=== PATIENT | female | born 1930 | race Caucasian/White ===

== ENCOUNTER 2018-12-23 14:22 | Emergency (ER) | payer MEDICARE ==
[~2018-12-23] VITALS: Ht 162.6 cm; Wt 68.2 kg
[~2018-12-23 14:22] MED LIST: AMLO-150 PO; ATOR20TA37 PO; BENA40TA3 PO; CALC-141 PO; CHOL2000 PO; DIPH25CA61 PO; FLUT16SP2 NAS; HYDR-3342 PO; LORA10CA PO; OMEP-110 PO; PROP150T2 PO; TRIA1CAP3 PO; WARF-36 PO; WARF7.5T46 PO
--- NOTE | 2018-12-23 14:25 | NUR ---
PT BIB [facility] FROM HOME AFTER SUFFERING AVULSION INJURY TO HER RFA. PT HAD HER DOG'S LEASH WRAPPED AROUND HER RFA, THEN SHE RAN OVER THE LEASH WITH HER SCOOTER, AND IT PULLED THE SKIN ON HER ARM. PT ALSO HAS LARGE HEMATOMA TO R WRIST. 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 PT TOOK TYLENOL AT HOME. HX AFIB & CVA ON COUMADIN, HTN, HLD. PT ARRIVES TO ED A&O4, NO DISTRESS NOTED. NO BLEEDING FROM RFA WOUNDS. ERP AT BS IMMEDIATELY.
[2018-12-23] MEDS ORDERED: DIPH,PERTUSS(ACELL),TET VAC/PF 0.5 ML IM-VACC ONE ×2 (14:47→15:00)
--- NOTE | 2018-12-23 14:56 | NUR ---
RFA WOUNDS AND HEMATOMA CLEANED, COVERED WITH ADAPTIC AND GAUZE PRESSURE DRESSING, AND WRAPPED WITH COBAN BY EMT. PT TOLERATED WELL. Addendum: 12/23/18 at 1457 by ESPINOZA PT'S DAUGHTER ON HER WAY TO ENGRAVER PICTURE PT.
[2018-12-23 14:59] LABS: INTERNATIONAL NORMALIZED RATIO 1.7 (0.93-1.1); PROTHROMBIN TIME 17.5 Seconds (9.6-11.5)
--- NOTE | 2018-12-23 15:53 | NUR ---
NEW DRESSING APPLIED TO RFA IT WAS BLEEDING THROUGH AFTER PT RETURNED FROM XR. GAUZE AND COBAN PRESSURE DSG APPLIED, BLEEDING CONTROLLED. DAUGHTER AT BS.
[2018-12-23 15:54] VITALS: BP 212/82
--- NOTE | 2018-12-23 16:50 | NUR ---
D/C INSTRUCTIONS, WOUND CARE, AND F/U APPT RV'WD WITH PT AND DAUGHTER, THEY VERBALIZE UNDERSTANDING. PT STATES HER GRANDSON (WHO IS AN EMT) WILL COME OVER TO HELP WITH WOUND CARE. SLING PROVIDED TO PT TO KEEP R ARM ELEVATED; CMS INTACT TO RUE. PT AMBULATED OUT OF ED WITH WALKER AND DAUGHTER WITHOUT DIFFICULTY.
== END 2018-12-23 17:05 | disposition other institution (70) ==
LOC: ED 15:35
DX: S51.801A Unspecified open wound of right forearm, initial encounter (principal); S60.211A Contusion of right wrist, initial encounter; Z79.01 Long term (current) use of anticoagulants; X58.XXXA Exposure to other specified factors, initial encounter; Y93.89 Activity, other specified; Y92.009 Unspecified place in unspecified non-institutional (private) residence as the place of occurrence of the external cause; Y99.8 Other external cause status
CPT/HCPCS: 36415; 85610; 90471; 90715; 99284

== ENCOUNTER → 2019-05-25 | Outpatient (CLI) | payer MEDICARE | END | disposition home or self-care (01) | LOC: CVU 13:28 | PROVIDERS: ATTEND Internal Medicine Cardiovascular Disease | DX: I08.1 Rheumatic disorders of both mitral and tricuspid valves (principal); I48.0 Paroxysmal atrial fibrillation; I10 Essential (primary) hypertension; E78.5 Hyperlipidemia, unspecified; I63.9 Cerebral infarction, unspecified; I08.3 Combined rheumatic disorders of mitral, aortic and tricuspid valves | CPT/HCPCS: 93306 ==

== ENCOUNTER → 2019-06-25 | Outpatient (CLI) | payer MEDICARE | END | disposition home or self-care (01) | LOC: CVU 15:24 | PROVIDERS: ATTEND Registered Nurse | DX: I65.23 Occlusion and stenosis of bilateral carotid arteries (principal); I10 Essential (primary) hypertension; E78.5 Hyperlipidemia, unspecified; Z86.73 Personal history of transient ischemic attack (TIA), and cerebral infarction without residual deficits | CPT/HCPCS: 93880 ==

== ENCOUNTER 2020-12-18 13:36 | Inpatient (IN) | payer MEDICARE ==
[~2020-12-18] VITALS: Ht 162.6 cm; Wt 70.4 kg
[2020-12-18] MEDS ORDERED: ASPIRIN 81 MG TABLET CHEW PO ONE (14:00)
[2020-12-18] MEDS ORDERED: PLEASE ENTER HEIGHT AND WEIGHT MC SCH (14:00)
--- NOTE | 2020-12-18 15:18 | NUR ---
PT TO RM FROM LOBBY
[2020-12-18] MEDS ORDERED: ACETAMINOPHEN 325 MG TABLET PO ONE (15:30)
[2020-12-18] MEDS ORDERED: hydrALAzine 20 MG/ML, 1ML IV ONE ×2 (15:30→16:30)
[2020-12-18] MEDS ORDERED: ACETAMINOPHEN 325 MG TABLET ONE ×2 (15:35→21:22)
[2020-12-18] MEDS ORDERED: hydrALAzine 20 MG/ML, 1ML ONE ×2 (15:51→16:40)
--- NOTE | 2020-12-18 16:04 | NUR ---
PT BACK FROM CT. PT AMBULATORY TO BR WITH STEADY GAIT. IV PLACED, MEDS GIVEN PER ERP ORDER FOR HTN 204/107. PT MEDICATED WITH TYLENOL FOR PAIN. CALL LIGHT WITHIN REACH.
--- NOTE | 2020-12-18 16:42 | NUR ---
PER ERP, LAB DELAY DUE TO ERRONEOUS CANCELLATION OF LABS IN COMPUTER. PT REMEDICATED FOR HTN, VSS UPDATED IN COMPUTER. AWAITING LAB RESULTS.
[2020-12-18 16:54] LABS: BASOPHILS % (AUTO) 2 % (0-1); EOSINOPHILS % (AUTO) 6 % (1-7); LYMPHOCYTES % (AUTO) 30 % (22-44); MEAN CORPUSCULAR HEMOGLOBIN 30.7 pg (27.0-34.8); MEAN CORPUSCULAR HGB CONC 33.9 g/dL (32.4-35.8); MEAN PLATELET VOLUME 8.8 fL (7.4-10.4); MONOCYTES % (AUTO) 8 % (2-9); NEUTROPHILS % (AUTO) 54 % (42-75); PLATELET COUNT 277 x10^3/uL (130-400); RED CELL DISTRIBUTION WIDTH 14.4 % (9.6-15.2)
[2020-12-18 16:56] LABS: MD NO
[2020-12-18 17:00] LABS: ALBUMIN 3.5 g/dL (3.4-5.0); ANION GAP 5 mmol/L (5-15); CALCIUM 8.5 mg/dL (8.5-10.1); CHLORIDE 106 mmol/L (98-107); CREATININE 0.83 mg/dL (0.55-1.02)
[2020-12-18] MEDS ORDERED: ENALAPRILAT 1.25 MG/ML, 2ML IV ONE (18:00)
[2020-12-18] MEDS ORDERED: ENALAPRILAT 1.25 MG/ML, 2ML ONE (18:07)
--- NOTE | 2020-12-18 18:12 | NUR ---
PT REMEDICATED PER ERP ORDER FOR HTN 211/96
[2020-12-18] MEDS ORDERED: CARV3.1212 PO (18:18)
[2020-12-18] MEDS ORDERED: hydrALAzine 20 MG/ML, 1ML IVPush PRN (18:30)
[2020-12-18] MEDS ORDERED: OXYcodone IR 5MG TABLET PO PRN (18:30)
[2020-12-18] MEDS ORDERED: BISACODYL 10 MG SUPP PR PRN (18:30)
[2020-12-18] MEDS ORDERED: LORazepam 2 MG/ML, 1ML IVPush PRN (18:30)
[2020-12-18] MEDS ORDERED: DOCUSATE 100 MG CAPSULE PO PRN (18:30)
[2020-12-18] MEDS ORDERED: ONDANSETRON 2MG/ML, 2ML IVPush PRN (18:30)
[2020-12-18] MEDS ORDERED: TEMAZEPAM 15 MG CAPSULE PO PRN (18:30)
[2020-12-18] MEDS ORDERED: POLYETHYLENE GLYCOL 17 GM PACKET PO PRN (18:30)
[2020-12-18] MEDS ORDERED: morphine SULFATE 10 MG/ML, 1ML IVPush PRN (18:30)
[2020-12-18] MEDS ORDERED: MELATONIN 5 MG TABLET PO PRN (18:30)
--- NOTE | 2020-12-18 18:45 | NUR ---
ATTEMPT TO CALL REPORT, RN UNAVAILABLE WILL CALL BACK PRIOR TO SHIFT REPORT.
--- NOTE | 2020-12-18 18:55 | NUR ---
Report received from CÉSAR Ferrera. This RN to assume care.
[2020-12-18 19:05] LABS: INTERNATIONAL NORMALIZED RATIO 2.05 (0.93-1.1); PROTHROMBIN TIME 21.6 Seconds (9.6-11.5)
[2020-12-18] MEDS ORDERED: LABETALOL 5MG/ML, 20ML ONE (19:05)
--- NOTE | 2020-12-18 19:05 | NUR ---
Assisted patient to bathroom. Nataliya care performed. Patient to be medicated for HTN. Patient is slightly tremulous. In NAD. Respirations even and unlabored.
--- NOTE | 2020-12-18 19:13 | NUR ---
ADDITIONAL ORDER FROM DR AMEZQUITA FOR LABETALOL FOR HTN. PER PT, NO MEDICATIONS TAKEN TODAY INCLUDING SEVERAL BP MEDS. PT CONTINUES TO RATE HER PAIN AT 9/10 BUT REFUSES ANY PAIN MEDICATION STRONGER THAN TYLENOL. THIS DISCUSSED FURTHER WITH DTR AND PT. REPORT TO KENYA RN, TRANSFER OF CARE AT THIS TIME.
[2020-12-18] MEDS ORDERED: LABETALOL 5MG/ML, 20ML IVPush ONE (19:30)
--- NOTE | 2020-12-18 19:50 | NUR ---
Medicated patient per sep. Provided salad and water to patient.
--- NOTE | 2020-12-18 20:15 | NUR ---
Patient remains HTN after meds.
--- NOTE | 2020-12-18 20:16 | NUR ---
After meds, patient systolic BP remains high, however MAP has decreased to 124.
--- NOTE | 2020-12-18 20:30 | NUR ---
Recheck BP on left arm; BP decreased. Reported to Dr. Vale, hospitalist.
--- NOTE | 2020-12-18 20:30 | NUR ---
Awaiting further orders from hospitalist to determine which floor patient tbadm to.
--- NOTE | 2020-12-18 20:43 | NUR ---
While on the phone with Dr. Vale, hospitalist, reckecked patient BP on bilat arms. Results reported.
--- NOTE | 2020-12-18 20:45 | NUR ---
Patient states she did not take any of her BP meds this morning. Patient remains HTN. Spoke with Dr. Vale, hospitalist. POC-admin scheduled BP meds; wait an hour and reassess BP on bilat arms. Report to Dr. Vale.
--- NOTE | 2020-12-18 20:59 | NUR ---
Arelis -[facility] [phone]
[2020-12-18] MEDS ORDERED: FAMOTIDINE 20 MG TABLET PO SCH (21:00)
[2020-12-18] MEDS ORDERED: BENAZEPRIL 20 MG TABLET PO SCH (21:00)
[2020-12-18] MEDS ORDERED: CARVEDILOL 3.125 MG TABLET PO SCH ×2 (21:00)
[2020-12-18] MEDS ORDERED: CARVEDILOL 6.25 MG TABLET ONE (21:02)
--- NOTE | 2020-12-18 21:05 | NUR ---
POC to recheck BP on bilat arms in one hour.
--- NOTE | 2020-12-18 21:05 | NUR ---
Admin scheduled BP meds per sep.
--- NOTE | 2020-12-18 21:20 | NUR ---
Patient c/o WAY. Admin Tylenol per sep.
[2020-12-18] MEDS: ACETAMINOPHEN 325 MG TABLET PO PRN (21:23)
--- NOTE | 2020-12-18 22:08 | NUR ---
Rechecked BP on bilat arms. Reported results to provider. Awaiting orders.
--- NOTE | 2020-12-18 22:36 | NUR ---
Spoke with Dr. Vale regarding BP. Plan to give Benazapril and reeval BP again in one hour and report results.
[2020-12-18] MEDS ORDERED: OMEPRAZOLE 20 MG CAPSULE.DR ONE (22:44)
--- NOTE | 2020-12-18 22:47 | NUR ---
Spoke with Dr. Vale regarding BP. Orders to admin Benazepril and initiate Nicardipine infusion.
[2020-12-18] MEDS ORDERED: CARVEDILOL 6.25 MG TABLET PO SCH (22:48)
[2020-12-18] MEDS ORDERED: FAMOTIDINE 20 MG TABLET ONE (22:50)
[2020-12-18] MEDS ORDERED: MORPHINE SULFATE 4 MG/ML, 1ML IVPush PRN (23:00)
--- NOTE | 2020-12-18 23:10 | NUR ---
Spoke with Arelis, patient's daughter, to give update on patient's status.
[2020-12-18] MEDS: PROPAFENONE 150 MG TABLET PO SCH (23:16)
--- NOTE | 2020-12-19 00:07 | NUR ---
Initiated Nicardipine infusion.
--- NOTE | 2020-12-19 00:15 | NUR ---
Report given to ÉCSAR Rangel. Patient to be transferred to room 549-1.
[2020-12-19 01:13] VITALS: BP 168/75
[2020-12-19] MEDS: ACETAMINOPHEN 325 MG TABLET PO PRN (01:40)
[2020-12-19 04:59] LABS: BASOPHILS % (AUTO) 0 % (0-1); EOSINOPHILS % (AUTO) 5 % (1-7); LYMPHOCYTES % (AUTO) 31 % (22-44); MEAN CORPUSCULAR HEMOGLOBIN 30.8 pg (27.0-34.8); MEAN CORPUSCULAR HGB CONC 34.4 g/dL (32.4-35.8); MEAN PLATELET VOLUME 8.2 fL (7.4-10.4); MONOCYTES % (AUTO) 8 % (2-9); NEUTROPHILS % (AUTO) 55 % (42-75); PLATELET COUNT 236 x10^3/uL (130-400); RED BLOOD COUNT 3.94 x10^6/uL (3.82-5.3); RED CELL DISTRIBUTION WIDTH 14.4 % (9.6-15.2)
[2020-12-19 05:07] LABS: MD NO
[2020-12-19 05:08] LABS: ANION GAP 7 mmol/L (5-15); CALCIUM 8.2 mg/dL (8.5-10.1); CHLORIDE 104 mmol/L (98-107); INTERNATIONAL NORMALIZED RATIO 2.1 (0.93-1.1); PROTHROMBIN TIME 22.1 Seconds (9.6-11.5)
[2020-12-19 05:11] LABS: CREATININE 0.81 mg/dL (0.55-1.02)
[2020-12-19] MEDS ORDERED: niFEDipine ER 60 MG TABLET.ER PO ONE (08:47)
[2020-12-19] MEDS: PROPAFENONE 150 MG TABLET PO SCH (08:51)
[2020-12-19] MEDS ORDERED: CALCIUM/VITAMIN D3 250-125 TABLET PO SCH (09:00)
[2020-12-19] MEDS ORDERED: OMEPRAZOLE 20 MG CAPSULE.DR PO SCH (09:00)
[2020-12-19] MEDS ORDERED: ATORVASTATIN 10 MG TABLET PO SCH (09:00)
[2020-12-19] MEDS ORDERED: niFEDipine ER 30 MG TABLET.ER PO SCH (09:00)
[2020-12-19] MEDS ORDERED: FAMOTIDINE 20 MG TABLET PO SCH (09:00)
[2020-12-19] MEDS ORDERED: WARFARIN 5 MG TABLET PO-COUM SCH ×3 (09:00→18:00)
[2020-12-19] MEDS ORDERED: CHOLECALCIFEROL 5,000u TAB PO SCH (09:00)
[2020-12-19] MEDS ORDERED: TEMPLATE NON-FORMULARY MED. (Benazepril Hcl** 40 MG) PO SCH (09:00)
[2020-12-19] MEDS ORDERED: AMLO5TAB4 PO (12:32)
[2020-12-19] MEDS ORDERED: WARFARIN 2.5 MG TABLET PO-COUM SCH (18:00)
== END 2020-12-19 14:14 | disposition home or self-care (01) | DRG 544 ==
LOC: ED 16:49 → EDIP 19:16 → CCU 12-19 00:35 → DCLOUNGE 12-19 14:06
PROVIDERS: ADMIT Internal Medicine; ATTEND Internal Medicine
DX: M48.56XA Collapsed vertebra, not elsewhere classified, lumbar region, initial encounter for fracture (principal); I10 Essential (primary) hypertension; I16.0 Hypertensive urgency; M81.0 Age-related osteoporosis without current pathological fracture; S20.211A Contusion of right front wall of thorax, initial encounter; S70.01XA Contusion of right hip, initial encounter; K21.9 Gastro-esophageal reflux disease without esophagitis; R53.81 Other malaise; W18.2XXA Fall in (into) shower or empty bathtub, initial encounter; I48.91 Unspecified atrial fibrillation; Z66 Do not resuscitate; Y92.009 Unspecified place in unspecified non-institutional (private) residence as the place of occurrence of the external cause; Y93.E1 Activity, personal bathing and showering; Z79.01 Long term (current) use of anticoagulants; Z86.73 Personal history of transient ischemic attack (TIA), and cerebral infarction without residual deficits; Z90.710 Acquired absence of both cervix and uterus; Z90.49 Acquired absence of other specified parts of digestive tract; Z88.0 Allergy status to penicillin
CPT/HCPCS: 36415; 72125; 72131; 80048; 82040; 83735; 84100; 85025; 85610; 87081; 93005; 96374; J0360; J7050